=== PATIENT | female | born 1985 | race Hispanic/Latino ===

== ENCOUNTER 2016-12-05 12:45 | Emergency (ER) | payer BC ==
[2016-12-05 12:46] VITALS: BMI 43.0
[2016-12-05 12:55] VITALS: BP 123/72; PULSE 91; RESP 16; TEMP 98; O2SAT 999
[2016-12-05 13:28] LABS: RBC URINE 63 /hpf (0-3); URINE BACTERIA FEW (<OCC); URINE BILIRUBIN NEGATIVE (NEGATIVE); URINE BLOOD MODERATE (NEGATIVE); URINE COLOR AMBER (YELLOW); URINE GLUCOSE (UA) NEG (Normal); URINE KETONE NEGATIVE (NEGATIVE); URINE LEUKOCYTE ESTERASE TRACE Leu/uL (Negative); URINE PROTEIN 100 mg/dL (NEGATIVE); WBC URINE 71 /hpf (0-5)
--- NOTE | 2016-12-05 13:37 | ED PDOC ---
HPI: Female Pain Time Seen by Provider: 12/05/16 12:48 Chief Complaint (Nursing): Female Genitourinary Chief Complaint (Provider): Female Genitourinary History Per: Patient History/Exam Limitations: no limitations Onset/Duration Of Symptoms: Days (x2) Current Symptoms Are (Timing): Still Present Quality Of Discomfort: Burning Associated Symptoms: Nausea, Back Pain, Urinary Symptoms (increased frequency, hematuria) Additional Complaint(s): Monika Allen is a 31 year old female, with no past medical history, who presents to the emergency department complaining of burning urination associated with increased frequency, hematuria, and intermittent episodes of nausea and back pain onset for 2 days. She denies any fever, chills, and vomit. Patient reports she went to urgent care for antibiotics but the pharmacy didn't have in stock. PMD: [facility] Past Medical History Reviewed: Historical Data, Nursing Documentation, Vital Signs Vital Signs: Last Vital Signs Temp 98.0 F 12/05/16 12:52 Pulse 91 H 12/05/16 12:52 Resp 16 12/05/16 12:52 BP 123/72 12/05/16 12:52 Pulse Ox 999 H 12/05/16 12:52 - Medical History PMH: No Chronic Diseases, Depression - Family History Family History: States: Unknown Family Hx - Home Medications Home Medications: Ambulatory Orders Medication Instructions Recorded Atropine/Hyoscyamine [] 1 - 2 tab PO Q8 PRN #30 tab 02/16/16 Ciprofloxacin [Cipro] 500 mg PO BID #14 tab 02/16/16 metroNIDAZOLE [Flagyl] 500 mg PO BID #14 tab 02/16/16 Cephalexin [cephalexin] 500 mg PO BID #20 cap 12/05/16 traMADol [Ultram] 50 mg PO Q4 #10 tab 12/05/16 - Allergies Allergies/Adverse Reactions: Allergies Allergy/AdvReac Type Severity Reaction Status Date / Time No Known Allergies Allergy Verified 02/16/16 15:56 Review of Systems ROS Statement: Except As Marked, All Systems Reviewed And Found Negative Constitutional: Negative for: Fever, Chills Gastrointestinal: Positive for: Nausea (intermittent) Genitourinary Female: Positive for: Dysuria, Frequency (increased), Hematuria Musculoskeletal: Positive for: Back Pain (intermittent) Physical Exam - Reviewed Nursing Documentation Reviewed: Yes Vital Signs Reviewed: Yes - Physical Exam Appears: Positive for: Well, Non-toxic, No Acute Distress Head Exam: Positive for: ATRAUMATIC, NORMAL INSPECTION, NORMOCEPHALIC Skin: Positive for: Normal Color, Warm, Dry Eye Exam: Positive for: Normal appearance Respiratory: Positive for: Normal Breath Sounds. Negative for: Respiratory Distress Gastrointestinal/Abdominal: Positive for: Tenderness (mild suprapubic ) Back: Positive for: L CVA Tenderness (bilateral CVA tenderness), R CVA Tenderness (b/l) Neurologic/Psych: Positive for: Alert, Oriented - Laboratory Results Result Diagrams: 12/05/16 13:30 12/05/16 13:30 - ECG O2 Sat by Pulse Oximetry: 999 (RA) Pulse Ox Interpretation: Normal Medical Decision Making Medical Decision Making: Initial Impression: Initial Plan: --Comp Metabolic Panel --Urine dipstick --Urine --CBC w/ differential --Toradol 30mg IVP --Zofran Inj 4 mg IV --Rocephin 1gm IV --Urine culture --reevaluation Labs resulted and reviewed with pt who demonstrated full understanding. Pt afebrile on re-eval, reports [ain improved. Stable for discharge home on outpt therapy. Urine culture sent and Pt advised that she will be contacted with results if antibiotic shows resistance Scribe Attestation: Documented by Dale Alvarez, acting as a scribe for Misti HUNTER. Provider Scribe Attestation: All medical record entries made by the Scribe were at my direction and personally dictated by me. I have reviewed the chart and agree that the record accurately reflects my personal performance of the history, physical exam, medical decision making, and the department course for this patient. I have also personally directed, reviewed, and agree with the discharge instructions and disposition. Disposition - Clinical Impression Clinical Impression: Urinary tract infection - Patient ED Disposition Is Patient to be Admitted: No - Disposition Disposition: Routine/Home Disposition Time: 15:03 Condition: STABLE Prescriptions: Cephalexin [cephalexin] 500 mg PO BID #20 cap traMADol [Ultram] 50 mg PO Q4 #10 tab Instructions: Urinary Tract Infection in Women (ED) Forms: [employer] ([place])
[2016-12-05] MEDS ORDERED: cefTRIAXone (Rocephin) 1 gm Inj ONE (13:47)
[2016-12-05 14:05] LABS: BASO % 0.3 % (0.0-2.0); EOS # 0.2 K/uL (0.0-0.7); EOS % 1.5 % (0.0-4.0); HEMATOCRIT 37.7 % (34.0-47.0); LYMPH # 3.5 K/uL (1.0-4.3); LYMPH % 30.9 % (20.0-40.0); MEAN CELL VOLUME 85.5 fl (81.0-99.0); MEAN CORPUSCULAR HGB CONC 32.8 g/dL (33.0-37.0); MEAN PLATELET VOLUME 8.4 fl (7.2-11.7); MONO # 0.6 K/uL (0.0-0.8); NEUT # 7.2 K/uL (1.8-7.0); NEUT % 62.3 % (50.0-75.0); RED CELL DISTRIBUTION WIDTH 14.3 % (11.5-14.5); WHITE BLOOD COUNT 11.5 K/uL (4.8-10.8)
[2016-12-05 14:15] LABS: ALB/GLOB RATIO 1.4 (1.0-2.1); ALKALINE PHOSPHATASE 61 U/L (38-126); ALT/SGPT 30 U/L (9-52); AST/SGOT 28 U/L (14-36); BILIRUBIN,TOTAL 0.4 mg/dl (0.2-1.3); BLOOD UREA NITROGEN 13 mg/dl (7-17); CALCIUM 9.5 mg/dL (8.4-10.2); CARBON DIOXIDE 20 mmol/L (22-30); CHLORIDE 109 mmol/L (98-107); GFR AFRICAN-AMERICAN > 60; GLUCOSE,RANDOM 111 mg/dL (65-105); POTASSIUM 3.8 MMOL/L (3.6-5.0); SODIUM 142 mmol/l (132-148); TOTAL PROTEIN 7.1 G/DL (6.3-8.2)
== END 2016-12-05 15:10 | disposition home or self-care (01) ==
LOC: H.ER 12:45
DX: N39.0 Urinary tract infection, site not specified (principal)
CPT/HCPCS: 80053; 81003; 81025; 85025; 87086; 96374; 96375; 99283; J0696; J1885; J2270; J2405

== ENCOUNTER 2017-04-20 08:37 | Emergency (ER) | payer BC ==
[2017-04-20 08:37] VITALS: BMI 43.0
[2017-04-20 09:14] VITALS: RESP 18; O2SAT 97
[2017-04-20] MEDS ORDERED: Sodium Chloride 0.9% 1,000 ML IV STA (10:26)
[2017-04-20] MEDS ORDERED: Morphine 4 MG/ML VIAL IVP ONE (10:27)
[2017-04-20] MEDS ORDERED: Morphine 4 MG/ML VIAL ONE (10:48)
[2017-04-20 11:28] LABS: BASO % 0.3 % (0.0-2.0); EOS # 0.1 K/uL (0.0-0.7); EOS % 1.3 % (0.0-4.0); HEMOGLOBIN 12.6 g/dL (12.0-16.0); LYMPH # 3.7 K/uL (1.0-4.3); LYMPH % 39.6 % (20.0-40.0); MEAN CELL VOLUME 84.5 fl (81.0-99.0); MEAN CORPUSCULAR HEMOGLOBIN 27.6 pg (27.0-31.0); MEAN CORPUSCULAR HGB CONC 32.6 g/dL (33.0-37.0); MEAN PLATELET VOLUME 8.2 fl (7.2-11.7); MONO # 0.7 K/uL (0.0-0.8); MONO % 7.5 % (0.0-10.0); NEUT # 4.7 K/uL (1.8-7.0); NEUT % 51.3 % (50.0-75.0); NRBC % 0.1 % (0.0-0.0); RBC 4.59 Mil/uL (3.80-5.20); RED CELL DISTRIBUTION WIDTH 14.9 % (11.5-14.5); WHITE BLOOD COUNT 9.2 K/uL (4.8-10.8)
[2017-04-20 11:38] LABS: BLOOD UREA NITROGEN 11 mg/dl (7-17); CALCIUM 9.1 mg/dL (8.4-10.2); GFR AFRICAN-AMERICAN > 60; GFR NON-AFRICAN AMERICAN > 60
[2017-04-20] MEDS ORDERED: Iohexol 300 100 ML IJ ONE (11:56)
[2017-04-20] MEDS ORDERED: Sodium Chloride 0.9% 50 ML IV ONE (11:56)
--- NOTE | 2017-04-20 12:41 | CT ---
PROCEDURE: CT Abdomen and Pelvis with contrast HISTORY: RLQ pain COMPARISON: CT scan of the abdomen and pelvis dated 02/16/2016. TECHNIQUE: Contrast dose: 95 mL Omnipaque 300 Radiation dose: Total exam DLP = 1154.3 mGy-cm. This CT exam was performed using one or more of the following dose reduction techniques: Automated exposure control, adjustment of the mA and/or kV according to patient size, and/or use of iterative reconstruction technique. FINDINGS: LOWER THORAX: Unremarkable. LIVER: Hepatic steatosis. No gross lesion or ductal dilatation. GALLBLADDER AND BILE DUCTS: Unremarkable. PANCREAS: Unremarkable. No gross lesion or ductal dilatation. SPLEEN: Unremarkable. ADRENALS: Unremarkable. No mass. KIDNEYS AND URETERS: Unremarkable. No hydronephrosis. No solid mass. VASCULATURE: Unremarkable. No aortic aneurysm. BOWEL: Unremarkable. No obstruction. No gross mural thickening. APPENDIX: Normal appendix. PERITONEUM: Unremarkable. No free fluid. No free air. LYMPH NODES: Unremarkable. No enlarged lymph nodes. BLADDER: Unremarkable. REPRODUCTIVE: Involuting right corpus luteal follicle. BONES: No acute fracture. OTHER FINDINGS: None. IMPRESSION: No acute abdominal pelvic pathology. Normal appendix. Involuting right corpus luteal follicle.
--- NOTE | 2017-04-20 14:09 | ED PDOC ---
HPI: Abdomen Time Seen by Provider: 04/20/17 09:51 Chief Complaint (Nursing): Abdominal Pain Chief Complaint (Provider): Abdominal Pain History Per: Patient History/Exam Limitations: no limitations Onset/Duration Of Symptoms: Days (x1) Current Symptoms Are (Timing): Still Present Location Of Pain/Discomfort: RLQ Additional Complaint(s): 32 year old female with no past medical history presents to the ER complaining of right lower quadrant abdominal pain for 1 day. States the pain came on suddenly during the middle of the night, and worsens with walking. No nausea, vomiting, diarrhea, vaginal bleeding, dysuria, or other associated complaint. PMD: [facility] Past Medical History Reviewed: Historical Data, Nursing Documentation, Vital Signs Vital Signs: Last Vital Signs Temp 98 F 04/20/17 16:40 Pulse 71 04/20/17 16:40 Resp 18 04/20/17 16:40 BP 120/82 04/20/17 16:40 Pulse Ox 97 04/20/17 16:41 - Medical History PMH: Depression - Surgical History Surgical History: No Surg Hx - Family History Family History: States: Unknown Family Hx - Social History Current smoker - smoking cessation education provided: No Alcohol: Social Drugs: Denies - Home Medications Home Medications: Ambulatory Orders Medication Instructions Recorded Atropine/Hyoscyamine [] 1 - 2 tab PO Q8 PRN #30 tab 02/16/16 Ciprofloxacin [Cipro] 500 mg PO BID #14 tab 02/16/16 metroNIDAZOLE [Flagyl] 500 mg PO BID #14 tab 02/16/16 Cephalexin [cephalexin] 500 mg PO BID #20 cap 12/05/16 traMADol [Ultram] 50 mg PO Q4 #10 tab 12/05/16 - Allergies Allergies/Adverse Reactions: Allergies Allergy/AdvReac Type Severity Reaction Status Date / Time No Known Allergies Allergy Verified 04/20/17 09:08 Review of Systems ROS Statement: Except As Marked, All Systems Reviewed And Found Negative Constitutional: Negative for: Fever Gastrointestinal: Positive for: Abdominal Pain. Negative for: Nausea, Vomiting , Diarrhea Genitourinary Female: Negative for: Dysuria, Vaginal Bleeding Physical Exam - Reviewed Nursing Documentation Reviewed: Yes Vital Signs Reviewed: Yes - Physical Exam Appears: Positive for: Non-toxic, No Acute Distress Head Exam: Positive for: ATRAUMATIC, NORMAL INSPECTION, NORMOCEPHALIC Skin: Positive for: Normal Color, Warm, Dry Eye Exam: Positive for: EOMI, Normal appearance, PERRL Neck: Positive for: Normal, Supple Cardiovascular/Chest: Positive for: Regular Rate, Rhythm. Negative for: Murmur Respiratory: Positive for: Normal Breath Sounds. Negative for: Accessory Muscle Use, Respiratory Distress Gastrointestinal/Abdominal: Positive for: Soft, Tenderness (at the right lower quadrant). Negative for: Distended, Guarding Back: Positive for: Normal Inspection. Negative for: L CVA Tenderness, R CVA Tenderness, Vertebral Tenderness Extremity: Positive for: Normal ROM. Negative for: Pedal Edema, Deformity Neurologic/Psych: Positive for: Alert, Oriented - Laboratory Results Result Diagrams: 04/20/17 11:10 04/20/17 11:10 - ECG O2 Sat by Pulse Oximetry: 97 (RA) Pulse Ox Interpretation: Normal Medical Decision Making Medical Decision Making: Initial Impression: RLQ pain. Differential includes: appendicitis, ovarian cyst rupture, ovarian torsion, ureteral stone Time: 10:23 Initial Plan: --BMP --CBC --ED urine dipstick --Urine --Urine culture --NS IV 1000 ml at 1000 mls/hr --Morphine 4 mg IV --Pending CT Abdomen/Pelvis 12:39 CT ABDOMEN/PELVIS FINDINGS: LOWER THORAX: Unremarkable. LIVER: Hepatic steatosis. No gross lesion or ductal dilatation. GALLBLADDER AND BILE DUCTS: Unremarkable. PANCREAS: Unremarkable. No gross lesion or ductal dilatation. SPLEEN: Unremarkable. ADRENALS: Unremarkable. No mass. KIDNEYS AND URETERS: Unremarkable. No hydronephrosis. No solid mass. VASCULATURE: Unremarkable. No aortic aneurysm. BOWEL: Unremarkable. No obstruction. No gross mural thickening. APPENDIX: Normal appendix. PERITONEUM: Unremarkable. No free fluid. No free air. LYMPH NODES: Unremarkable. No enlarged lymph nodes. BLADDER: Unremarkable. REPRODUCTIVE: Involuting right corpus luteal follicle. BONES: No acute fracture. OTHER FINDINGS: None. IMPRESSION: No acute abdominal pelvic pathology. Normal appendix. Involuting right corpus luteal follicle. Labs reviewed, and are grossly normal. 13:44 Ordered US Pelvis/Transvag Scribe Attestation: Documented by Deena Campos, acting as a scribe for Antwan Brice MD Provider Scribe Attestation: All medical record entries made by the Scribe were at my direction and personally dictated by me. I have reviewed the chart and agree that the record accurately reflects my personal performance of the history, physical exam, medical decision making, and the department course for this patient. I have also personally directed, reviewed, and agree with the discharge instructions and disposition. Disposition - Clinical Impression Clinical Impression: Abdominal pain - Patient ED Disposition Is Patient to be Admitted: Transfer of Care - Disposition Referrals: [facility] [Outside] - 04/21/17 Disposition: Transfer of Care Disposition Time: 15:00 Condition: STABLE Additional Instructions: Return if not better in 3 days. Instructions: Acute Abdominal Pain (ED) Patient Signed Over To: Olayinka Decker
--- NOTE | 2017-04-20 16:08 | US ---
HISTORY: RLQ pain COMPARISON: None available. TECHNIQUE: Grayscale, color Doppler and spectral evaluation of the pelvis performed transabdominally and transvaginally. FINDINGS: UTERUS: Measures 7.1 x 2.1 x 4.1 cm. Normal in size and appearance. No fibroid or other mass lesion seen. ENDOMETRIUM: Measures 4 mm in diameter. Unremarkable. CERVIX: No cervical abnormality identified. RIGHT OVARY: Measures 1.9 x 1.4 x 2.1 cm. No solid mass. Normal flow. LEFT OVARY: Measures 1.7 x 1.2 x 1.2 cm. No solid mass. Normal flow. FREE FLUID: No significant free fluid noted. OTHER FINDINGS: None. IMPRESSION: Unremarkable pelvic ultrasound.
[2017-04-20 16:40] VITALS: BP 120/82; PULSE 71; TEMP 98
--- NOTE | 2017-04-20 16:40 | ED PDOC ---
- Laboratory Results Result Diagrams: 04/20/17 11:10 04/20/17 11:10 Interpretation Of Abn Labs: no acute - ECG O2 Sat by Pulse Oximetry: 97 (RA) Pulse Ox Interpretation: Normal - CT Scan/US US Other Rad Studies (CT/US): Read By Radiologist Other Rad Interpretation: no acute - Progress ED Course And Treament: 1500: Stable. Took over from Dr. Brice. Fu on imaging. CT no findings. 1639: Stable. AAOx3. Pain free. Tolerated PO. Fu with pcp. Disposition Counseled Patient/Family Regarding: Studies Performed, Diagnosis, Need For Followup - Clinical Impression Clinical Impression: Abdominal pain - POA Present On Arrival: None - Disposition Referrals: [facility] [Outside] - 04/21/17 Disposition: Routine/Home Disposition Time: 16:40 Condition: STABLE Additional Instructions: Return if not better in 3 days. Instructions: Acute Abdominal Pain (ED)
== END 2017-04-20 16:49 | disposition home or self-care (01) ==
LOC: H.ER 08:37
DX: R10.31 Right lower quadrant pain (principal); F32.9 Major depressive disorder, single episode, unspecified
CPT/HCPCS: 74177; 76830; 76856; 80048; 81025; 85025; 87086; 87181; 96361; 96374; 96375; 99283; J1885; J2270; J7040; Q9967

== ENCOUNTER 2018-06-24 11:12 | Emergency (ER) | payer BC ==
[2018-06-24 12:27] VITALS: BMI 48.2
[2018-06-24 13:22] LABS: SQUAMOUS EPITHIAL 2 /hpf (0-5); URINE BACTERIA MOD (<OCC); URINE BILIRUBIN NEGATIVE (NEGATIVE); URINE BLOOD NEGATIVE (NEGATIVE); URINE CLARITY SLIGHTY-CLOUDY (Clear); URINE COLOR STRAW (YELLOW); URINE GLUCOSE (UA) NEG (NEGATIVE); URINE LEUKOCYTE ESTERASE NEG Leu/uL (Negative); URINE PROTEIN NEGATIVE (NEGATIVE); URINE UROBILINOGEN 0.2-1.0 mg/dL (0.2-1.0)
--- NOTE | 2018-06-24 14:02 | US ---
Date of service: 06/24/2018 PROCEDURE: OB Pelvic Ultrasound HISTORY: LLQ pain, 19.3 week 02/09/2018 LMP COMPARISON: None available. FINDINGS: UTERUS: Gestational sac: There is a single live intrauterine gestation identified. There is adequate movement observed by the technologist performing the examination. Heart rate: 163 bpm. age (Ultrasound estimated): BPD 43 millimeters. Head circumference 172 millimeters, abdominal circumference 148 millimeters. Femur length 35 millimeters. This corresponds with an estimated gestational age of 20 weeks and 0 days. No prior studies available for comparison for rate of growth. Kriss-gestational hemorrhage: No retroplacental hemorrhage is seen. Date of delivery (Ultrasound estimated) : Based on this ultrasound the estimated date of delivery is November 11, 2018 Uterus was within normal limits. CERVIX: Measures 4.3 cm. Long and closed. No cervical abnormality seen. RIGHT OVARY: Not identified. LEFT OVARY: Not identified. FREE FLUID: None. OTHER FINDINGS: No formal sonographic anatomy evaluation was performed on this examination. Patient should have formal sonographic anatomy evaluation obtained. IMPRESSION: Single live intrauterine gestation with an estimated gestational age of 20 weeks and 0 days. No prior studies available for estimation of rate of growth. Normal amount of amniotic fluid by visual inspection. sonographic anatomy evaluation was not performed on this exam. Formal sonographic anatomy evaluation should be obtained if this is not already been performed. No adnexal mass is clearly seen. Please see above for details
[2018-06-24 19:13] VITALS: BP 104/53; PULSE 90; TEMP 98.4
--- NOTE | 2018-06-24 21:04 | OBHP ---
Datetime: 06/24/2018 12:30 IP Adm Impression: , intrauterine ; No Active Labor IP Admit Plan: Observation/Evaluation Admit Comment, IP Provider: 33 y/o , 19.3 wks based on LMP with OLGA of 11/15/18, W/ H/o frequent U TI sent to [facility] from urgent care due to sharp lower abdominal pain and abnormal UA. Patient started h aving sharp 5/10, B/L lower abdominal pain, nonradiating yesterday. Patient tried tylenol, hydration with mild improvement. Today patient went to [facility] where UA done was abnormal and patient was presc ribed Keflex and advised to come to ED. Currently pain is 4/10 mor on LLQ with asssociated urinary fr equency and urgency. Denies nausea, vomiting, fever, chills, back pain, vaginal bleeding, dysuria. PMD: Dr. Mueller PMHx: Anxiety, Depression, Double Ureter R kidney PSHx: [place] tooth removal Allergies: Denies F/H: Father TIA, valve replacement surgery SOcial: No ETOH/smoking/drugs Last US 04/30/17: WNL per patient Medications: Lexapro 20 mg, Wellbutrin 300 mg PNVs PE: General: NAD Chest: RRR, S1S2 present Lungs: CTAB ABdomen: LLQ tenderness, No suprapubic/RLQ tenderness. No rebound guarding, Negative Rovsing, obtu rator, psoas sign Back: No CVA tenderness, No tenderness LE: No pedal edema A/P: 33 y/o 19.3 wks, H/O recurrent UTI sent from Urgent care for evaluation of LLQ tenderness and UTI - Urinalysis, stat shows Mod bob, consistent with UTI - OB/Pelvic US, consistent with 20 wks IUP, with FHR 163. No free fluid seen in peritoneum - VSS - Patient to be D/C home - Start taking Keflex prescribed by Urgent care, F/U Urine culture done by urgent care - Maintain hydration - Take tylenol PRN for pain - Follow up with Dr. Mueller on 07/03 for F/U appointement - Patient given opportunity to ask questions, all questions answered. Patient verbalized understan patricia. Case discussed with Dr. Marilee Little, PGY1 Attending Note: patient was seen and examined with the resident at her bedside and I agree with th e above assessment. Pelvic Type - PN: Not Done Extremities - PN: Normal Abdomen - PN: Abnormal Back - PN: Normal Breast - PN: Not Done Lungs - PN: Normal Heart - PN: Normal Thyroid - PN: Not Done Neurologic - PN: Not Done HEENT - PN: Normal General - PN: Normal Comments, ACOG Physical Exam: PE: General: NAD Chest: RRR, S1S2 present Lungs: CTAB ABdomen: LLQ tenderness, No suprapubic/RLQ tenderness. No rebound guarding, Negative Rovsing, obtu rator, psoas sign Back: No CVA tenderness, No tenderness LE: No pedal edema Gestation - Est Wks by US: 19.3 EGA AdmitDate IP: 19.2 Vital Signs Provider: Reviewed IP Chief Complaint: Signs/symptoms UTI; Maternal discomfort Genitourinary Exam: Normal DTRs - PN: Normal
== END 2018-06-24 14:45 | disposition home or self-care (01) ==
LOC: H.EROB2 11:12 → H.EROB 11:19 → H.EROB2 14:45
DX: O26.92 Pregnancy related conditions, unspecified, second trimester (principal); R10.2 Pelvic and perineal pain; O23.42 Unspecified infection of urinary tract in pregnancy, second trimester; Z3A.19 19 weeks gestation of pregnancy